=== PATIENT | female | born 1995 | race Caucasian/White ===

== ENCOUNTER 2016-05-12 17:03 | Emergency (ER) | END 2016-05-12 21:56 | disposition home or self-care (01) | DX: R10.84 Generalized abdominal pain (principal); Z72.0 Tobacco use ==

== ENCOUNTER 2016-12-17 15:31 | Emergency (ER) | payer BC ==
[~2016-12-17] VITALS: Ht 152.4 cm; Wt 71.5 kg
[~2016-12-17 15:31] MED LIST: ACET325T33 PO; FAMO-96 PO; HYDR-906 PO; IBUP-1542 PO; ONDA4TAB8 PO
[2016-12-17 15:41] VITALS: Ht 152.4 cm; Wt 71.5 kg
--- NOTE | 2016-12-17 17:06 | ERD ---
ER Documentation Chief Complaint Date/Time DATE: 12/17/16 TIME: 16:50 Chief Complaint RIGHT LOWER ABDOMINAL RADIATES TO BACK,NAUSEA,DIARRHEA HPI 21-year-old female who presents emergency department for bilateral pelvic pain that radiates to her back. Stated that this has been going on and off for about a few months. Complains of diarrhea. Denies headache, dizziness, blurry vision, neck pain, shoulder pain, chest pain , constipation, nausea, vomiting, recent travel, recent exposure to any illness , , possibility of being , recent antibiotic use in the last 3 months, fever, chills, changes in diet. No known drug allergies. No past medical history. No surgeries. Does not take any prescription medication at home. Social: Not working this time. Occasional drinks alcoholic beverages. Admits use of medical marijuana. Denies smoking cigarettes. ROS All systems reviewed and are negative except as per history of present illness. Medications Home Meds Active Scripts Acetaminophen* (Tylophen*) 500 Mg Capsule, 1 CAP PO Q6H Y for PAIN AND OR ELEVATED TEMP, #20 CAP Prov:MITCH JOHNSTON 12/17/16 Famotidine* (Pepcid*) 20 Mg Tablet, 20 MG PO DAILY for 45 Days, TAB Prov:MITCH JOHNSTON 12/17/16 Ondansetron Hcl* (Zofran*) 4 Mg Tablet, 4 MG PO Q8H Y for NAUSEA AND/OR VOMITING , #30 TAB Prov:MITCH JOHNSTON F 12/17/16 Cyclobenzaprine Hcl* (Cyclobenzaprine Hcl*) 10 Mg Tablet, 10 MG PO Q12 Y for MUSCLE SPASMS, #20 TAB Prov:MITCH JOHNSTON 12/17/16 Hydrocodone/Acetaminophen ([place] 5-325 Tablet) 1 Each Tablet, 1 TAB PO Q6H Y for PAIN, #20 TAB Prov:WILLIE,BRITTANY C 05/12/16 Ibuprofen* (Motrin*) 600 Mg Tab, 600 MG PO Q6, #30 TAB Prov:WILLIE,BRITTANY C 05/12/16 Ondansetron Hcl* (Zofran*) 4 Mg Tablet, 4 MG PO Q6H for NAUSEA AND/OR VOMITING, #30 TAB Prov:ROGELIO BILLS PA-C 03/16/15 Acetaminophen* (Tylenol*) 325 Mg Tablet, 2 TAB PO Q8 Y for PAIN AND OR ELEVATED TEMP, #20 TAB Prov:ROGELIO BILLS PA-C 03/16/15 Acetaminophen* (Tylenol*) 325 Mg Tablet, 2 TAB PO Q8 Y for PAIN AND OR ELEVATED TEMP, #20 TAB Prov:ROGELIO BILLS PA-C 01/05/15 Famotidine* (Pepcid*) 20 Mg Tablet, 20 MG PO BID for 4 Days, TAB Prov:ROGELIO BILLS PA-C 01/05/15 Ondansetron Hcl* (Zofran*) 4 Mg Tablet, 4 MG PO Q6H for NAUSEA AND/OR VOMITING, #30 TAB Prov:ROGELIO BILLS PA-C 01/05/15 Allergies Allergies: Coded Allergies: No Known Drug Allergies (Verified Allergy, Mild, 08/14/15) PMhx/Soc History of Surgery: No Anesthesia Reaction: No Hx Neurological Disorder: No Hx Respiratory Disorders: Yes (CHILDHOOD ASTHMA) Hx Cardiac Disorders: No Hx Psychiatric Problems: No Hx Miscellaneous Medical Probl: No Hx Alcohol Use: Yes Hx Substance Use: No Hx Tobacco Use: Yes Smoking Status: Never smoker Physical Exam Vitals Vital Signs Date Time Temp Pulse Resp B/P Pulse Ox O2 Delivery O2 Flow Rate FiO2 12/17/16 19:59 98.6 78 18 122/65 100 Room Air 12/17/16 15:41 98.3 95 18 111/59 8 Physical Exam Const: [] Head: Atraumatic Eyes: Normal Conjunctiva ENT: Normal External Ears, Nose and Mouth. Neck: Full range of motion..~ No meningismus. Resp: Clear to auscultation bilaterally Cardio: Regular rate and rhythm, no murmurs Abd: Soft, non tender, non distended. Normal bowel sounds. Able to jump 10 times without developing abdominal pain. Negative nausea sign. Negative Carlos Manuel sign. Negative psoas sign. Skin: No petechiae or rashes Back: No midline or flank tenderness Ext: No cyanosis, or edema Neur: Awake and alert Psych: Normal Mood and Affect Result Diagram: 12/17/16 1736 12/17/16 1736 Results 24 hrs Laboratory Tests Test 12/17/16 17:20 12/17/16 17:36 Urine Color YELLOW Urine Clarity SLIGHTLY CLOUDY Urine pH 7.0 Urine Specific [place] 1.027 Urine Ketones NEGATIVEmg/dL Urine Nitrite NEGATIVEmg/dL Urine Bilirubin NEGATIVEmg/dL Urine Urobilinogen 1+mg/dL Urine Leukocyte Esterase NEGATIVELeu/ul Urine Microscopic RBC 24/HPF Urine Microscopic WBC 2/HPF Urine Squamous Epithelial Cells FEW/HPF Urine Bacteria FEW/HPF Urine Mucus FEW/HPF Urine Hemoglobin 1+mg/dL Urine Glucose NEGATIVEmg/dL Urine Total Protein NEGATIVEmg/dl White Blood Count 11.810^3/ul Red Blood Count 4.6510^6/ul Hemoglobin 14.1g/dl Hematocrit 42.9% Mean Corpuscular Volume 92.3fl Mean Corpuscular Hemoglobin 30.3pg Mean Corpuscular Hemoglobin Concent 32.9g/dl Red Cell Distribution Width 13.6% Platelet Count 86609^3/UL Mean Platelet Volume 9.8fl Neutrophils % 79.5% Lymphocytes % 13.3% Monocytes % 5.9% Eosinophils % 0.6% Basophils % 0.3% Nucleated Red Blood Cells % 0.0/100WBC Neutrophils # (Manual) 9.410^3/ul Lymphocytes # 1.610^3/ul Monocytes # 0.710^3/ul Eosinophils # 0.110^3/ul Basophils # 0.010^3/ul Nucleated Red Blood Cells # 0.010^3/ul Sodium Level 138mmol/L Potassium Level 4.1mmol/L Chloride Level 105mmol/L Carbon Dioxide Level 23mmol/L Anion Gap 14 Blood Urea Nitrogen 14mg/dl Creatinine 0.78mg/dl Glucose Level 89mg/dl Calcium Level 9.1mg/dl Total Bilirubin 0.1mg/dl Direct Bilirubin 0.00mg/dl Indirect Bilirubin 0.1mg/dl Aspartate Amino Transf (AST/SGOT) 24IU/L Alanine Aminotransferase (ALT/SGPT) 31IU/L Alkaline Phosphatase 97IU/L Total Protein 8.0g/dl Albumin 4.5g/dl Globulin 3.50g/dl Albumin/Globulin Ratio 1.28 Amylase Level 92U/L Lipase 108U/L Serum HCG, Qualitative NEGATIVE Current Medications Medications (Trade) Dose Ordered Sig/[place] Route PRN Reason Start Time Stop Time Status Last Admin Dose Admin Miscellaneous Medication (Gi Cocktail (2)) 40 ml ONCE ONCE PO 12/17/16 17:30 12/17/16 17:31 DC 12/17/16 17:26 Ondansetron HCl (Zofran Tab) 4 mg ONCE ONCE PO 12/17/16 17:30 12/17/16 17:30 DC Ondansetron HCl (Zofran Odt) 4 mg ONCE STAT ODT 12/17/16 17:16 12/17/16 17:17 DC 12/17/16 17:26 Metoclopramide HCl (Reglan) 10 mg ONCE ONCE PO 12/17/16 19:30 12/17/16 19:31 DC 12/17/16 19:38 Acetaminophen/ Hydrocodone Bitart ([place] (5/325)) 1 tab ONCE ONCE PO 12/17/16 20:00 12/17/16 20:01 DC 12/17/16 19:58 Procedures/MDM Examination: Please see physical examination. Disease process, medical treatment was explained to the patient and family member. They verbalized understanding and agreed with the diagnostic tests, medical treatment, and follow-up care. Blood works: Reviewed. POC urine : Negative. Urinalysis:Reviewed. Treatment:Zofran. Reglan. GI cocktail. Re-evaluation:Denies headache, dizziness, blurry vision, neck pain, shoulder pain, chest pain, back pain, abdominal pain, nausea, vomiting. No episode of emesis in the emergency department. Alert and oriented 4. Speaks full and clear sentences. Respirations even and unlabored. Lung sounds clear to auscultation. Active bowel sounds. There is no right upper/right lower/ epigastric/left upper/left lower abdominal tenderness and light and deep palpation. Negative on Rovsings sign. Negative Carlos Manuel sign. Able to jump 5 times without developing right-sided abdominal pain. No peritoneal signs. Ambulatory with steady gait. No neurovascular deficits. No neurological deficits. Consultation:None. Differential diagnosis:Appendicitis versus pancreatitis versus cholecystitis versus diverticulitis versus nephrolithiasis versus pyelonephritis versus urinary tract infection versus gastritis versus urinary tract infection. Medical decision makin-year-old female who presents emergency department for bilateral pelvic pain that radiates to her back. Stated that this has been going on and off for about a few months. Complains of diarrhea.Patient's complaint, patient's history about her complaint, my physical findings, diagnostic test results, my evaluation are consistent with my final diagnosis of gastritis, muscle spasms, abdominal pain. Medications prescribed are the following: Pepcid. Flexeril. Zofran. Patient and family member are made aware of the side effects and adverse reactions of the medications prescribed. Instructed on when to seek emergent and medical attention in case allergic/anaphylactic reactions or severe side effects and or adverse reactions to medications. Patient and family member verbalized understanding. Patient instructed Instructed to follow-up with his PCP in 24-48 hours. Instructed to Call 911 for chest pain, shortness of breath. Advised to come back here in ED as soon as possible for severity of symptoms which includes but not limited to: any new symptoms; shortness of breath/difficulty of breathing; cardiovascular changes; severe gastrointestinal symptoms; signs and symptoms of bleeding and or infection; signs of compartment syndrome/neurovascular changes; neurological changes/deficits. Patient and family member verbalized understanding. Upon discharge, patient is alert and oriented x 4, speaks full and clear sentences, denies pain, has no neurological deficits, has no neurovascular deficits, difficulty of breathing. Breathing even and unlabored. Lung sounds are clear to auscultation. Not in distress. Appears comfortable. Ambulatory with steady gait. Appears satisfied with care provided here in ED. Departure Diagnosis: Primary Impression: Gastritis Additional Impressions: Muscle spasm Abdominal pain Condition: Stable Additional Instructions: Instructed to follow-up with his PCP in 24-48 hours. Instructed to Call 911 for chest pain, shortness of breath. Advised to come back here in ED as soon as possible for severity of symptoms which includes but not limited to: any new symptoms; shortness of breath/difficulty of breathing; cardiovascular changes; severe gastrointestinal symptoms; signs and symptoms of bleeding and or infection; signs of compartment syndrome/neurovascular changes; neurological changes/deficits. Patient and family member verbalized understanding. MITCH JOHNSTON Dec 17, 2016 17:06
[2016-12-17] MEDS ORDERED: ONDANSETRON (ODT) 4 MG TAB ODT STA (17:16)
[2016-12-17] MEDS ORDERED: ONDANSETRON 4 MG TAB PO ONE (17:30)
[2016-12-17] MEDS ORDERED: LIDOCAINE/MYLANTA 40 ML BTL PO ONE (17:30)
[2016-12-17 17:43] LABS: BASOPHILS % 0.3 % (0.0-2.0); EOSINOPHILS # 0.1 10^3/ul (0.0-0.5); EOSINOPHILS % 0.6 % (0.0-7.0); HEMATOCRIT 42.9 % (37.0-47.0); HEMOGLOBIN 14.1 g/dl (12.0-16.0); LYMPHOCYTES # 1.6 10^3/ul (0.8-2.9); LYMPHOCYTES % 13.3 % (15.0-51.0); MEAN CORPUSCULAR HEMOGLOBIN 30.3 pg (29.0-33.0); MEAN CORPUSCULAR HGB CONC 32.9 g/dl (32.0-37.0); MEAN CORPUSCULAR VOLUME 92.3 fl (82.0-101.0); MEAN PLATELET VOLUME 9.8 fl (7.4-10.4); MONOCYTE # 0.7 10^3/ul (0.3-0.9); MONOCYTES % 5.9 % (0.0-11.0); NEUTROPHILS % 79.5 % (39.0-77.0); PLATELET COUNT 328 10^3/UL (140-415); RED BLOOD COUNT 4.65 10^6/ul (4.20-5.40); RED CELL DISTRIBUTION WIDTH 13.6 % (11.5-14.5); WHITE BLOOD COUNT 11.8 10^3/ul (4.8-10.8)
[2016-12-17 17:55] LABS: ADD UMIC YES; UR ASCORBIC ACID NEGATIVE (NEGATIVE); UR BACTERIA FEW /HPF (NONE SEEN); UR BILIRUBIN (Dip) NEGATIVE (NEGATIVE); UR BLOOD (Dip) 1+ mg/dL (NEGATIVE); UR CLARITY SLIGHTLY CLOUDY (CLEAR); UR COLOR YELLOW (YELLOW); UR GLUCOSE (Dip) NEGATIVE (NEGATIVE); UR KETONES (Dip) NEGATIVE (NEGATIVE); UR LEUKOCYTE ESTERASE (Dip) NEGATIVE Leu/ul (NEGATIVE); UR MUCUS FEW /HPF (NONE SEEN); UR NITRITE (Dip) NEGATIVE (NEGATIVE); UR RBC 24 /HPF (0-5); UR SPECIFIC GRAVITY (Dip) 1.027 (1.003-1.030); UR SQUAMOUS EPITHELIAL CELL FEW /HPF (FEW); UR TOTAL PROTEIN (Dip) NEGATIVE (NEGATIVE); UR UROBILINOGEN (Dip) 1+ mg/dL (NEGATIVE)
[2016-12-17 18:00] LABS: ALBUMIN 4.5 g/dl (3.3-4.9); ALBUMIN/GLOBULIN RATIO 1.28; BILIRUBIN,INDIRECT 0.1 mg/dl (0-1.1); BILIRUBIN,TOTAL 0.1 mg/dl (0.2-1.3); CALCIUM 9.1 mg/dl (8.4-10.2); CREATININE 0.78 mg/dl (0.44-1.00); POTASSIUM 4.1 mmol/L (3.5-5.1)
[2016-12-17] MEDS ORDERED: METOCLOPRAMIDE 10 MG TAB PO ONE (19:30)
[2016-12-17] MEDS ORDERED: CYCL-319 PO (19:34)
[2016-12-17] MEDS ORDERED: FAMO-96 PO (19:35)
[2016-12-17] MEDS ORDERED: ONDA4TAB8 PO (19:35)
[2016-12-17] MEDS ORDERED: ACET500C5 PO (19:36)
[2016-12-17 19:59] VITALS: BP 122/65; PULSE 78; RESP 18; TEMP 98.6
[2016-12-17] MEDS ORDERED: HYDROCODONE/APAP (5/325) TAB PO ONE (20:00)
== END 2016-12-17 20:00 | disposition home or self-care (01) ==
LOC: FTE 15:31
DX: K29.70 Gastritis, unspecified, without bleeding (principal); M62.838 Other muscle spasm; R10.2 Pelvic and perineal pain; Z87.891 Personal history of nicotine dependence
CPT/HCPCS: 80053; 81001; 82150; 83690; 84703; 85025; 99284

== ENCOUNTER 2017-02-11 10:50 | Emergency (ER) | payer BC ==
[~2017-02-11] VITALS: Ht 160 cm; Wt 71.3 kg
[~2017-02-11 10:50] MED LIST changes: +ACET500C5 PO; +CYCL-319 PO
[2017-02-11 10:53] VITALS: Ht 160 cm; Wt 71.3 kg
[2017-02-11] MEDS ORDERED: KETOROLAC 30 MG INJ IV STA (12:13)
--- NOTE | 2017-02-11 13:03 | RADRPT ---
PROCEDURE: US Pelvis. CLINICAL INDICATION: Vaginal bleeding TECHNIQUE: Multiple sonographic images of the pelvis were obtained utilizing a transabdominal tech nique. The images were reviewed on a PACS workstation. COMPARISON: 08/14/15 FINDINGS: The uterus is normal in size with a normal appearance of the myometrium. The uterus measures 5.9 x 3.3 x 3.7 cm. The endometrial stripe is homogeneous in appearance and has the thickness of 11 mm. The ovaries are normal in size and echogenicity. Normal Doppler flow is identified in both ovaries. The right ovary measures 3.2 x 2.1 x 3.0 cm. The left ovary measures 3.2 x 2.6 x 2.5 cm. No free fluid is present within the pelvis. RPTAT: AA IMPRESSION: Unremarkable pelvic ultrasound. .Simone Mckinley MD, Date Time Electronically viewed and signed by .Simone Mckinley MD, MD on 02/11/2017 13:03 .S/
--- NOTE | 2017-02-11 13:08 | ERD ---
ER Documentation Chief Complaint Chief Complaint VAG BLEED X 1 MONTH HPI This is a 21-year-old female who presents the emergency department today complaining of vaginal bleeding for the past month. Patient states she has irregular periods and states her last menstrual cycle was a couple of months ago. States she has some low back pain. Denies any fevers or chills, vomiting. She was told in the past that she had a cyst on her ovary. ROS All systems reviewed and are negative except as per history of present illness. Medications Home Meds Active Scripts Medroxyprogesterone Acetate* (Provera*) 10 Mg Tablet, 10 MG PO DAILY for 5 Days , TAB Prov:MYKE THORPEC 02/11/17 Acetaminophen* (Tylophen*) 500 Mg Capsule, 1 CAP PO Q6H Y for PAIN AND OR ELEVATED TEMP, #30 CAP Prov:MYKE THORPEC 02/11/17 Naproxen* (Naprosyn*) 500 Mg Tablet, 500 MG PO BID Y for PAIN AND/OR INFLAMMATION, #30 TAB Prov:MYKE THORPE PA-C 02/11/17 Acetaminophen* (Tylophen*) 500 Mg Capsule, 1 CAP PO Q6H Y for PAIN AND OR ELEVATED TEMP, #20 CAP Prov:MITCH JOHNSTON 12/17/16 Famotidine* (Pepcid*) 20 Mg Tablet, 20 MG PO DAILY for 45 Days, TAB Prov:MITCH JOHNSTON 12/17/16 Ondansetron Hcl* (Zofran*) 4 Mg Tablet, 4 MG PO Q8H Y for NAUSEA AND/OR VOMITING , #30 TAB Prov:MITCH JOHNSTON 12/17/16 Cyclobenzaprine Hcl* (Cyclobenzaprine Hcl*) 10 Mg Tablet, 10 MG PO Q12 Y for MUSCLE SPASMS, #20 TAB Prov:MITCH JOHNSTON 12/17/16 Hydrocodone/Acetaminophen ([place] 5-325 Tablet) 1 Each Tablet, 1 TAB PO Q6H Y for PAIN, #20 TAB Prov:BRITTANY TAPIA 05/12/16 Ibuprofen* (Motrin*) 600 Mg Tab, 600 MG PO Q6, #30 TAB Prov:WILLIEBRITTANY GUERRERO 05/12/16 Ondansetron Hcl* (Zofran*) 4 Mg Tablet, 4 MG PO Q6H for NAUSEA AND/OR VOMITING, #30 TAB Prov:ROGELIO BILLS PA-C 03/16/15 Acetaminophen* (Tylenol*) 325 Mg Tablet, 2 TAB PO Q8 Y for PAIN AND OR ELEVATED TEMP, #20 TAB Prov:ROGELIO BILLS PA-C 03/16/15 Acetaminophen* (Tylenol*) 325 Mg Tablet, 2 TAB PO Q8 Y for PAIN AND OR ELEVATED TEMP, #20 TAB Prov:ROGELIO BILLS PA-C 01/05/15 Famotidine* (Pepcid*) 20 Mg Tablet, 20 MG PO BID for 4 Days, TAB Prov:ROGELIO BILLS PA-C 01/05/15 Ondansetron Hcl* (Zofran*) 4 Mg Tablet, 4 MG PO Q6H for NAUSEA AND/OR VOMITING, #30 TAB Prov:ROGELIO BILLS PA-C 01/05/15 Allergies Allergies: Coded Allergies: No Known Drug Allergies (Verified Allergy, Mild, 08/14/15) PMhx/Soc History of Surgery: No Anesthesia Reaction: No Hx Neurological Disorder: No Hx Respiratory Disorders: Yes ( ASTHMA) Hx Cardiac Disorders: No Hx Psychiatric Problems: No Hx Miscellaneous Medical Probl: No Hx Alcohol Use: Yes Hx Substance Use: No Hx Tobacco Use: Yes Smoking Status: Current every day smoker Physical Exam Vitals Vital Signs Date Time Temp Pulse Resp B/P Pulse Ox O2 Delivery O2 Flow Rate FiO2 02/11/17 10:53 98.7 78 18 117/74 98 Physical Exam Const: NAD Head: Atraumatic Eyes: Normal Conjunctiva ENT: Normal External Ears, Nose and Mouth. Neck: Full range of motion..~ No meningismus. Resp: Clear to auscultation bilaterally Cardio: Regular rate and rhythm, no murmurs Abd: Soft, diffuse pelvic tenderness, non distended. Normal bowel sounds. No tenderness at McBurney's. Skin: No petechiae or rashes Back: No midline or flank tenderness Ext: No cyanosis, or edema Neur: Awake and alert Psych: Normal Mood and Affect Result Diagram: 02/11/17 1200 02/11/17 1200 Results 24 hrs Laboratory Tests Test 02/11/17 11:55 02/11/17 12:00 Urine Color STRAW Urine Clarity CLEAR Urine pH 7.0 Urine Specific [place] 1.013 Urine Ketones NEGATIVEmg/dL Urine Nitrite NEGATIVEmg/dL Urine Bilirubin NEGATIVEmg/dL Urine Urobilinogen NEGATIVEmg/dL Urine Leukocyte Esterase NEGATIVELeu/ul Urine Microscopic RBC 7/HPF Urine Microscopic WBC 0/HPF Urine Bacteria FEW/HPF Urine Hemoglobin 3+mg/dL Urine Glucose NEGATIVEmg/dL Urine Total Protein NEGATIVEmg/dl White Blood Count 8.310^3/ul Red Blood Count 4.6110^6/ul Hemoglobin 13.6g/dl Hematocrit 42.7% Mean Corpuscular Volume 92.6fl Mean Corpuscular Hemoglobin 29.5pg Mean Corpuscular Hemoglobin Concent 31.9g/dl Red Cell Distribution Width 13.5% Platelet Count 85074^3/UL Mean Platelet Volume 9.6fl Neutrophils % 60.7% Lymphocytes % 29.3% Monocytes % 7.5% Eosinophils % 1.1% Basophils % 0.4% Nucleated Red Blood Cells % 0.0/100WBC Neutrophils # 5.010^3/ul Lymphocytes # 2.410^3/ul Monocytes # 0.610^3/ul Eosinophils # 0.110^3/ul Basophils # 0.010^3/ul Nucleated Red Blood Cells # 0.010^3/ul Sodium Level 141mmol/L Potassium Level 3.9mmol/L Chloride Level 105mmol/L Carbon Dioxide Level 28mmol/L Anion Gap 12 Blood Urea Nitrogen 9mg/dl Creatinine 0.60mg/dl Glucose Level 90mg/dl Calcium Level 9.5mg/dl Total Bilirubin 0.4mg/dl Direct Bilirubin 0.00mg/dl Indirect Bilirubin 0.4mg/dl Aspartate Amino Transf (AST/SGOT) 29IU/L Alanine Aminotransferase (ALT/SGPT) 33IU/L Alkaline Phosphatase 96IU/L Total Protein 7.8g/dl Albumin 4.2g/dl Globulin 3.60g/dl Albumin/Globulin Ratio 1.16 Current Medications Medications (Trade) Dose Ordered Sig/Kinga Route PRN Reason Start Time Stop Time Status Last Admin Dose Admin Ketorolac Tromethamine (Toradol) 30 mg ONCE STAT IV 02/11/17 12:13 02/11/17 12:14 Cancel Acetaminophen/ Hydrocodone Bitart ([place] (5/325)) 1 tab ONCE ONCE PO 02/11/17 13:30 02/11/17 13:31 DIAGNOSTIC IMAGING REPORT Patient: RUSTY SINHA : 1995 Age: 21 Sex: F MR #: [id number] DOS: 02/11/17 0000 Ordering MD: MYKE THORPE PA-C Location: [facility] Room/Bed: PROCEDURE: US Pelvis. CLINICAL INDICATION: Vaginal bleeding TECHNIQUE: Multiple sonographic images of the pelvis were obtained utilizing a transabdominal technique. The images were reviewed on a PACS workstation. COMPARISON: 08/14/15 FINDINGS: The uterus is normal in size with a normal appearance of the myometrium. The uterus measures 5.9 x 3.3 x 3.7 cm. The endometrial stripe is homogeneous in appearance and has the thickness of 11 mm. The ovaries are normal in size and echogenicity. Normal Doppler flow is identified in both ovaries. The right ovary measures 3.2 x 2.1 x 3.0 cm. The left ovary measures 3.2 x 2.6 x 2.5 cm. No free fluid is present within the pelvis. RPTAT: AA IMPRESSION: Unremarkable pelvic ultrasound. .Simone Mckinley MD, MD Date Time Electronically viewed and signed by .Simone Mckinley MD, MD on 02/11/2017 13: 03 .S/ CC: MYKE THORPE PA-C Procedures/[facility] This is a 21-year-old female who presents to the emergency department today complaining of vaginal bleeding for the past month as well as some low back pain and pelvic cramping. Laboratory workup shows no elevated white blood cell count. She is not anemic. Platelets are within normal limits. Electro lites are within normal limits. Glucose is within normal limits. Liver enzymes are within normal limits. UA for infection. Urine test is negative US remarkable. There is no free fluid present. There is normal Doppler flow to both ovaries. Symptoms At this time is consistent with vaginal bleeding and pelvic pain. Likely dysfunctional uterine bleeding. Low suspicion for ectopic , tubo-ovarian abscess, ovarian torsion. Patient is afebrile and otherwise well- appearing. Patient was given [place] as she did not want an injection for pain. Patient will be given a prescription for short course of Provera, Naprosyn and Tylenol for home. She has been instructed to follow-up with her primary care doctor for referral to gynecology specialist. Have also given her resources. At this time the patient is stable for discharge and outpatient management. Patient should follow up with their PCP in the next 1-2 days. They may return to the emergency department sooner for any persistent or worsening of symptoms. Patient understood and agreed with the plan. Departure Diagnosis: Primary Impression: Vaginal bleeding Additional Impression: Pelvic pain Condition: MYKE Padron PA-C Feb 11, 2017 13:08
[2017-02-11] MEDS ORDERED: NAPR-260 PO (13:14)
[2017-02-11] MEDS ORDERED: ACET500C5 PO (13:14)
[2017-02-11] MEDS ORDERED: MEDR10TA2 PO (13:15)
[2017-02-11] MEDS ORDERED: HYDROCODONE/APAP (5/325) TAB PO ONE (13:30)
== END 2017-02-11 13:24 | disposition home or self-care (01) ==
LOC: FTE 10:50
DX: N93.9 Abnormal uterine and vaginal bleeding, unspecified (principal); R10.2 Pelvic and perineal pain; J45.909 Unspecified asthma, uncomplicated; F17.210 Nicotine dependence, cigarettes, uncomplicated
CPT/HCPCS: 36415; 76830; 76856; 80053; 81001; 85025; J1885

== ENCOUNTER 2017-06-08 10:44 | Emergency (ER) | END 2017-06-08 16:07 | disposition home or self-care (01) ==

== ENCOUNTER 2017-07-19 17:49 | Emergency (ER) | END 2017-07-19 19:55 | disposition home or self-care (01) ==